=== PATIENT | male | born 1985 | race Caucasian/White ===

== ENCOUNTER 2019-12-21 08:32 | Emergency (ER) | payer BC ==
[~2019-12-21] VITALS: Ht 188 cm; Wt 136.4 kg
[~2019-12-21 08:32] MED LIST: IBUP-2338 PO
[2019-12-21] MEDS ORDERED: SODIUM CHLORIDE 0.9% 1,000 ML IV ONE (10:02)
[2019-12-21 10:20] LABS: ANION GAP 15 mmol/L (8-16); CALCIUM, TOTAL 8.6 mg/dL (8.8-10.5); CARBON DIOXIDE 21 mmol/L (22-29); CHLORIDE 101 mmol/L (98-107); CREATININE 0.95 mg/dL (0.60-1.30); GLOMERULAR FILTR. RATE CALC > 60 mL/min (>60); GLUCOSE,RANDOM 124 mg/dL (70-110); POTASSIUM 3.5 mmol/L (3.5-5.1); SODIUM SERUM 137 mmol/L (136-145); UREA NITROGEN, BLOOD 11 mg/dL (7-18)
[2019-12-21 10:26] LABS: ALANINE AMINOTRANSFERASE 78 U/L (12-78); ALBUMIN 4.2 g/dL (3.4-5.0); ALKALINE PHOSPHATASE 85 U/L (46-116); ASPARTATE AMINOTRANSFERASE 35 U/L (15-37); BASOPHILS % (AUTO) 0.4 % (0.0-2.0); BILIRUBIN,TOTAL 1.3 mg/dL (0.1-1.0); EOSINOPHILS % (AUTO) 0.1 % (1.0-6.0); HEMATOCRIT 49.9 % (41-53); HEMOGLOBIN 17.6 g/dL (13.5-17.5); LIPASE 152 U/L (73-393); LYMPHOCYTES # (AUTO) 2.1 K/uL (1.0-4.8); LYMPHOCYTES % (AUTO) 35.4 % (22.0-44.0); MEAN CORPUSCULAR HEMOGLOBIN 30.4 pg (26.0-34.0); MEAN CORPUSCULAR HGB CONC 35.3 G/dL (31.0-37.0); MEAN CORPUSCULAR VOLUME 86 fL (80-100); MONOCYTES # (AUTO) 0.6 K/uL (0.1-1.0); MONOCYTES % (AUTO) 10.7 % (2.0-9.0); NEUTROPHILS # (AUTO) 3.1 K/uL (1.8-7.7); NEUTROPHILS % (AUTO) 53.4 % (40.0-70.0); PLATELET COUNT (AUTO) 176 K/uL (150-450); RED BLOOD CELL COUNT(AUTO) 5.79 MIL/uL (4.50-5.90); RED CELL DISTRIBUTION WIDTH 13.5 % (11.5-14.5); TOTAL PROTEIN, SERUM 8.8 g/dL (6.4-8.2)
[2019-12-21 11:27] LABS: GLUCOSE, URINE (UA) NEGATIVE (NEGATIVE); KETONES,URINE 15 mg/dL (NEGATIVE); LEUKOCYTE ESTERASE ,URINE NEGATIVE (NEGATIVE); NITRATE,URINE NEGATIVE (NEGATIVE); OCCULT BLOOD,URINE NEGATIVE (NEGATIVE); PROTEIN,URINE POS 1+ (NEGATIVE)
[2019-12-21 11:38] LABS: BILIRUBIN,URINE PRELIM. POSITIVE (NEGATIVE)
[2019-12-21 11:39] LABS: APPEARANCE,URINE HAZY (CLEAR)
[2019-12-21 12:03] LABS: BACTERIA,URINE None Seen /HPF (None Seen); RBC,URINE 0-2 /HPF (0-2); WBC,URINE 0-2 /HPF (0-5)
[2019-12-21 12:55] VITALS: BP 134/78
== END 2019-12-21 13:11 | disposition home or self-care (01) ==
LOC: EMS 08:33
DX: R19.7 Diarrhea, unspecified (principal); M54.5 Low back pain; F17.210 Nicotine dependence, cigarettes, uncomplicated; F12.90 Cannabis use, unspecified, uncomplicated
CPT/HCPCS: 36415; 80053; 81001; 83690; 85025; 96360; 99285; 99406; J7030

== ENCOUNTER 2019-12-22 13:37 | Emergency (ER) | payer BC ==
[~2019-12-22] VITALS: Ht 188 cm; Wt 136.4 kg
[2019-12-22] MEDS ORDERED: FAMOTIDINE 10 MG/ML 2 ML VIAL IVP ONE (15:00)
[2019-12-22] MEDS ORDERED: ONDANSETRON HCL 4 MG/2 ML VIAL IVP ONE (15:00)
[2019-12-22 15:47] LABS: BASOPHILS % (AUTO) 0.3 % (0.0-2.0); EOSINOPHILS % (AUTO) 0.7 % (1.0-6.0); HEMATOCRIT 49.5 % (41-53); HEMOGLOBIN 16.7 g/dL (13.5-17.5); LYMPHOCYTES # (AUTO) 2.1 K/uL (1.0-4.8); LYMPHOCYTES % (AUTO) 25.7 % (22.0-44.0); MEAN CORPUSCULAR HEMOGLOBIN 29.4 pg (26.0-34.0); MEAN CORPUSCULAR HGB CONC 33.7 G/dL (31.0-37.0); MEAN CORPUSCULAR VOLUME 87 fL (80-100); MONOCYTES # (AUTO) 0.8 K/uL (0.1-1.0); MONOCYTES % (AUTO) 10.2 % (2.0-9.0); NEUTROPHILS % (AUTO) 63.1 % (40.0-70.0); PLATELET COUNT (AUTO) 199 K/uL (150-450); RED BLOOD CELL COUNT(AUTO) 5.67 MIL/uL (4.50-5.90); RED CELL DISTRIBUTION WIDTH 13.3 % (11.5-14.5)
[2019-12-22 15:59] LABS: ANION GAP 16 mmol/L (8-16); CALCIUM, TOTAL 9.1 mg/dL (8.8-10.5); CARBON DIOXIDE 20 mmol/L (22-29); CHLORIDE 106 mmol/L (98-107); CREATININE 0.82 mg/dL (0.60-1.30); GLOMERULAR FILTR. RATE CALC > 60 mL/min (>60); GLUCOSE,RANDOM 94 mg/dL (70-110); POTASSIUM 3.4 mmol/L (3.5-5.1); SODIUM SERUM 142 mmol/L (136-145); UREA NITROGEN, BLOOD 12 mg/dL (7-18)
[2019-12-22 16:03] LABS: ALANINE AMINOTRANSFERASE 77 U/L (12-78); ALBUMIN 4.3 g/dL (3.4-5.0); ALKALINE PHOSPHATASE 79 U/L (46-116); ASPARTATE AMINOTRANSFERASE 33 U/L (15-37); BILIRUBIN,TOTAL 1.5 mg/dL (0.1-1.0); LIPASE 126 U/L (73-393); TOTAL PROTEIN, SERUM 8.6 g/dL (6.4-8.2)
[2019-12-22] MEDS ORDERED: POTASSIUM CHLORIDE 20 MEQ ER TABLET PO ONE (16:15)
[2019-12-22] MEDS ORDERED: SODIUM CHLORIDE 0.9% 500 ML IV ONE (16:15)
[2019-12-22 16:19] LABS: GLUCOMETER DEV NAME(LOC) PVLAB.13
[2019-12-22 17:29] LABS: APPEARANCE,URINE CLOUDY (CLEAR); GLUCOSE, URINE (UA) NEGATIVE (NEGATIVE); KETONES,URINE >=80 mg/dL (NEGATIVE); LEUKOCYTE ESTERASE ,URINE NEGATIVE (NEGATIVE); NITRATE,URINE NEGATIVE (NEGATIVE); OCCULT BLOOD,URINE NEGATIVE (NEGATIVE); PROTEIN,URINE POS 1+ (NEGATIVE)
[2019-12-22 17:46] LABS: BILIRUBIN,URINE PRELIM. POSITIVE (NEGATIVE)
[2019-12-22 18:10] LABS: BACTERIA,URINE Few /HPF (None Seen); MUCUS,URINE Moderate LPF (None Seen); RBC,URINE None Seen /HPF (0-2); SQUAMOUS EPITHELIAL CELL,UR Few /LPF (None Seen); WBC,URINE 0-2 /HPF (0-5)
[2019-12-22 18:49] VITALS: BP 138/84
== END 2019-12-22 18:50 | disposition home or self-care (01) ==
LOC: EMS 14:02
DX: U07.1 COVID-19 (principal); B34.9 Viral infection, unspecified; R11.2 Nausea with vomiting, unspecified; R19.7 Diarrhea, unspecified; R10.84 Generalized abdominal pain; F17.210 Nicotine dependence, cigarettes, uncomplicated
CPT/HCPCS: 36415; 74176; 80053; 81001; 83690; 85025; 87635; 96361; 96374; 96375; 99285; J2405; J3490; J7040

== ENCOUNTER 2020-10-30 12:52 | Emergency (ER) | payer BC ==
[~2020-10-30] VITALS: Ht 188 cm; Wt 136.4 kg
[2020-10-30 14:58] LABS: APPEARANCE,URINE CLEAR (CLEAR); BILIRUBIN,URINE NEGATIVE (NEGATIVE); GLUCOSE, URINE (UA) NEGATIVE (NEGATIVE); KETONES,URINE NEGATIVE (NEGATIVE); LEUKOCYTE ESTERASE ,URINE NEGATIVE (NEGATIVE); NITRATE,URINE NEGATIVE (NEGATIVE); OCCULT BLOOD,URINE NEGATIVE (NEGATIVE); PROTEIN,URINE NEGATIVE (NEGATIVE); UROBILINOGEN,URINE 0.2 mg/dL (<=1.0)
[2020-10-30] MEDS ORDERED: KETOROLAC TROMETHAMINE 10 MG TABLET PO ONE (15:30)
[2020-10-30 17:16] VITALS: BP 120/70
== END 2020-10-30 17:19 | disposition home or self-care (01) ==
LOC: EMS 12:54
DX: R30.0 Dysuria (principal); F17.210 Nicotine dependence, cigarettes, uncomplicated; F12.90 Cannabis use, unspecified, uncomplicated; Z87.442 Personal history of urinary calculi
CPT/HCPCS: 74176; 99284

== ENCOUNTER 2024-08-25 17:58 | Inpatient (IN) | payer BC ==
[~2024-08-25] VITALS: Ht 188 cm; Wt 118.2 kg
[2024-08-25] MEDS ORDERED: 0.9% SODIUM CHLORIDE 10 ML SYRINGE IVP ONE (18:27)
[2024-08-25] MEDS ORDERED: IOHEXOL 350 MG/ML 100 ML VIAL ONE (18:27)
[2024-08-25 18:45] LABS: BASOPHILS % (AUTO) 0.4 % (0.0-2.0); EOSINOPHILS % (AUTO) 5.2 % (1.0-6.0); HEMATOCRIT 45.7 % (41-53); HEMOGLOBIN 15.6 g/dL (13.5-17.5); LYMPHOCYTES # (AUTO) 2.2 K/uL (1.0-4.8); MEAN CORPUSCULAR HEMOGLOBIN 30.5 pg (26.0-34.0); MEAN CORPUSCULAR HGB CONC 34.2 G/dL (31.0-37.0); MEAN CORPUSCULAR VOLUME 89 fL (80-100); MONOCYTES # (AUTO) 0.6 K/uL (0.1-1.0); MONOCYTES % (AUTO) 11.1 % (2.0-9.0); NEUTROPHILS # (AUTO) 2.6 K/uL (1.8-7.7); NEUTROPHILS % (AUTO) 45.3 % (40.0-70.0); PLATELET COUNT (AUTO) 283 K/uL (150-450); RED BLOOD CELL COUNT(AUTO) 5.13 MIL/uL (4.50-5.90); RED CELL DISTRIBUTION WIDTH 13.3 % (11.5-14.5); WHITE BLOOD COUNT (AUTO) 5.7 K/uL (4.5-11.0)
[2024-08-25 18:59] LABS: ANION GAP 8 mmol/L (8-16); CALCIUM, TOTAL 8.9 mg/dL (8.8-10.5); CARBON DIOXIDE 27 mmol/L (22-29); CHLORIDE 102 mmol/L (98-107); GLOMERULAR FILTR. RATE CALC > 60 mL/min (>60); GLUCOSE,RANDOM 89 mg/dL (70-110); POTASSIUM 3.3 mmol/L (3.5-5.1); SODIUM SERUM 137 mmol/L (136-145); UREA NITROGEN, BLOOD 12 mg/dL (7-18)
[2024-08-25 19:05] LABS: ALANINE AMINOTRANSFERASE 49 U/L (12-78); ALBUMIN 3.6 g/dL (3.4-5.0); ALKALINE PHOSPHATASE 94 U/L (46-116); ASPARTATE AMINOTRANSFERASE 27 U/L (15-37); BILIRUBIN,TOTAL 1.2 mg/dL (0.1-1.0); PHOSPHORUS 3.1 mg/dL (2.5-4.9); TOTAL PROTEIN, SERUM 7.1 g/dL (6.4-8.2)
[2024-08-25 19:07] LABS: TROPONIN I-HIGH SENSITIVITY Less Than 4 ng/L (<76)
[2024-08-25] MEDS ORDERED: ACETAMINOPHEN 325 MG TABLET PO PRN (20:00)
[2024-08-25] MEDS ORDERED: ONDANSETRON HCL 4 MG/2 ML VIAL IVP PRN (20:00)
[2024-08-25] MEDS: OXYGEN THERAPY IH SCH (20:08)
[2024-08-25] MEDS: ASPIRIN 81 MG CHEWABLE TABLET PO ONE (20:13)
[2024-08-25] MEDS: ATORVASTATIN CALCIUM 40 MG TABLET PO SCH (20:13)
[2024-08-25] MEDS: DOCUSATE SODIUM 100 MG CAPSULE PO SCH (20:13)
[2024-08-25] MEDS ORDERED: POTASSIUM CHLORIDE 20 MEQ ER TABLET PO PRN (20:45)
[2024-08-25] MEDS ORDERED: POTASSIUM CHL 10 MEQ/WATER 50 ML IV PRN (20:45)
[2024-08-25] MEDS: CLOPIDOGREL BISULFATE 75 MG TABLET PO ONE (21:11)
[2024-08-26] MEDS: HEPARIN SODIUM,PORCINE 5,000 UNITS/ML VIAL SQ SCH (00:27)
[2024-08-26 01:21] LABS: TROPONIN I-HIGH SENSITIVITY Less Than 4 ng/L (<76)
[2024-08-26 06:52] LABS: BASOPHILS % (AUTO) 0.4 % (0.0-2.0); EOSINOPHILS % (AUTO) 1.8 % (1.0-6.0); HEMATOCRIT 45.6 % (41-53); HEMOGLOBIN 15.9 g/dL (13.5-17.5); LYMPHOCYTES # (AUTO) 1.5 K/uL (1.0-4.8); LYMPHOCYTES % (AUTO) 20.7 % (22.0-44.0); MEAN CORPUSCULAR HEMOGLOBIN 30.8 pg (26.0-34.0); MEAN CORPUSCULAR HGB CONC 34.9 G/dL (31.0-37.0); MEAN CORPUSCULAR VOLUME 88 fL (80-100); MONOCYTES # (AUTO) 0.5 K/uL (0.1-1.0); MONOCYTES % (AUTO) 7.7 % (2.0-9.0); NEUTROPHILS # (AUTO) 4.9 K/uL (1.8-7.7); NEUTROPHILS % (AUTO) 69.4 % (40.0-70.0); PLATELET COUNT (AUTO) 268 K/uL (150-450); RED BLOOD CELL COUNT(AUTO) 5.17 MIL/uL (4.50-5.90); RED CELL DISTRIBUTION WIDTH 13.6 % (11.5-14.5); WHITE BLOOD COUNT (AUTO) 7.1 K/uL (4.5-11.0)
[2024-08-26 07:21] LABS: ANION GAP 5 mmol/L (8-16); CALCIUM, TOTAL 8.9 mg/dL (8.8-10.5); CARBON DIOXIDE 30 mmol/L (22-29); CHLORIDE 101 mmol/L (98-107); CHOL/HDL RATIO 2.7 (4.2-7.3); CHOLESTEROL 131 mg/dL (131-200); CREATININE 0.83 mg/dL (0.60-1.30); GLOMERULAR FILTR. RATE CALC > 60 mL/min (>60); GLUCOSE,RANDOM 81 mg/dL (70-110); HDL CHOLESTEROL 48 mg/dL (40-60); LDL CHOL (CALC.) 74 mg/dL (0-130); POTASSIUM 4.3 mmol/L (3.5-5.1); SODIUM SERUM 136 mmol/L (136-145); TRIGLYCERIDES 46 mg/dL (15-150); UREA NITROGEN, BLOOD 9 mg/dL (7-18)
[2024-08-26 07:22] LABS: TROPONIN I-HIGH SENSITIVITY Less Than 4 ng/L (<76)
[2024-08-26 08:48] VITALS: BP 118/66; PULSE 63; RESP 19; TEMP 98.2; O2SAT 97
[2024-08-26 11:01] VITALS: BP 123/68; PULSE 66; RESP 20; TEMP 98.1; O2SAT 97
[2024-08-26] MEDS: CLOPIDOGREL BISULFATE 75 MG TABLET PO SCH (11:16)
[2024-08-26] MEDS: ASPIRIN 81 MG CHEWABLE TABLET PO SCH (11:17)
[2024-08-26 15:01] VITALS: BP 127/70; PULSE 68; RESP 19; TEMP 98.3; O2SAT 99
[2024-08-26 20:00] VITALS: BP 111/67; PULSE 87; RESP 18; TEMP 98; O2SAT 98
[2024-08-27] VITALS: BP 116/62; PULSE 77; RESP 18; TEMP 98; O2SAT 98
[2024-08-27 04:00] VITALS: BP 114/67; PULSE 74; RESP 18; TEMP 98; O2SAT 98
[2024-08-27 08:35] VITALS: BP 117/75; PULSE 84; RESP 18; TEMP 98.3; O2SAT 98
[2024-08-27 11:41] VITALS: BP 117/63; PULSE 90; RESP 18; TEMP 98.9; O2SAT 97
[2024-08-27] MEDS ORDERED: GADOTERATE MEGLUMINE 10 MMOL/20 ML VIAL IVP ONE (11:49)
[2024-08-27 15:58] VITALS: BP 118/66; PULSE 82; RESP 18; TEMP 98.9; O2SAT 96
[2024-08-27 19:54] VITALS: BP 116/69; PULSE 82; RESP 18; TEMP 98; O2SAT 97
[2024-08-28] VITALS: BP 111/68; PULSE 84; RESP 17; TEMP 98.7; O2SAT 97
[2024-08-28 04:00] VITALS: BP 103/70; PULSE 85; RESP 17; TEMP 98.1; O2SAT 98
[2024-08-28 07:23] VITALS: BP 116/72; PULSE 98; RESP 18; TEMP 98.4; O2SAT 99
[2024-08-28] MEDS ORDERED: ATOR40TA71 PO (07:23)
[2024-08-28] MEDS ORDERED: CLOP75TA60 PO (07:23)
[2024-08-28] MEDS ORDERED: ASPI-1450 PO (07:23)
[2024-08-28 09:14] LABS: BASOPHILS % (AUTO) 0.5 % (0.0-2.0); EOSINOPHILS % (AUTO) 0.6 % (1.0-6.0); HEMATOCRIT 49.5 % (41-53); HEMOGLOBIN 16.7 g/dL (13.5-17.5); LYMPHOCYTES # (AUTO) 1.8 K/uL (1.0-4.8); MEAN CORPUSCULAR HEMOGLOBIN 29.9 pg (26.0-34.0); MEAN CORPUSCULAR HGB CONC 33.8 G/dL (31.0-37.0); MEAN CORPUSCULAR VOLUME 89 fL (80-100); MONOCYTES # (AUTO) 0.6 K/uL (0.1-1.0); MONOCYTES % (AUTO) 7.9 % (2.0-9.0); NEUTROPHILS # (AUTO) 4.6 K/uL (1.8-7.7); PLATELET COUNT (AUTO) 280 K/uL (150-450); RED BLOOD CELL COUNT(AUTO) 5.59 MIL/uL (4.50-5.90); RED CELL DISTRIBUTION WIDTH 13.3 % (11.5-14.5); WHITE BLOOD COUNT (AUTO) 7.1 K/uL (4.5-11.0)
[2024-08-28 09:27] LABS: ANION GAP 11 mmol/L (8-16); CALCIUM, TOTAL 8.8 mg/dL (8.8-10.5); CARBON DIOXIDE 23 mmol/L (22-29); CHLORIDE 104 mmol/L (98-107); CREATININE 0.84 mg/dL (0.60-1.30); GLOMERULAR FILTR. RATE CALC > 60 mL/min (>60); GLUCOSE,RANDOM 90 mg/dL (70-110); POTASSIUM 3.8 mmol/L (3.5-5.1); SODIUM SERUM 138 mmol/L (136-145); UREA NITROGEN, BLOOD 14 mg/dL (7-18)
[2024-08-28 09:28] LABS: TROPONIN I-HIGH SENSITIVITY Less Than 4 ng/L (<76)
[2024-08-28 09:41] LABS: CHOL/HDL RATIO 2.3 (4.2-7.3); CHOLESTEROL 113 mg/dL (131-200); HDL CHOLESTEROL 50 mg/dL (40-60); LDL CHOL (CALC.) 50 mg/dL (0-130); TRIGLYCERIDES 66 mg/dL (15-150)
[2024-08-28] MEDS: ASPIRIN 325 MG TABLET PO ONE (09:46)
[2024-08-28 11:28] VITALS: BP 112/66; PULSE 78; RESP 19; TEMP 98.3; O2SAT 97
[2024-08-28 13:36] LABS: GLUCOMETER DEV NAME(LOC) ER.7; GLUCOSE,POINT OF CARE 74 MG/DL (70-110)
[2024-08-28 15:30] VITALS: BP 111/52; PULSE 82; RESP 18; TEMP 97.7; O2SAT 99
[2024-08-28 20:00] VITALS: BP 117/72; PULSE 78; RESP 17; TEMP 98.1; O2SAT 98
[2024-08-28 23:11] LABS: GLUCOMETER DEV NAME(LOC) 5N.2C; GLUCOSE,POINT OF CARE 101 MG/DL (70-110)
[2024-08-29] VITALS: BP 115/67; PULSE 81; RESP 17; TEMP 98.1; O2SAT 98
[2024-08-29 04:00] VITALS: BP 119/70; PULSE 77; RESP 17; TEMP 98.4; O2SAT 98
[2024-08-29 08:10] VITALS: BP 133/90; PULSE 97; RESP 19; TEMP 98.2; O2SAT 98
[2024-08-29 11:15] VITALS: BP 126/84; PULSE 88; RESP 19; TEMP 98.1; O2SAT 99
[2024-08-29 14:33] VITALS: BP 126/90; PULSE 98; RESP 18; TEMP 98.2; O2SAT 98
[2024-08-31 15:06] LABS: ANA,IFA (TITER & PATTERN) Negative
== END 2024-08-29 14:45 | disposition home or self-care (01) | DRG 948 ==
LOC: EMS 17:58 → EDH 19:49 → 5N 08-26 08:12
PROVIDERS: ADMIT Internal Medicine; ATTEND Internal Medicine
DX: R53.1 Weakness (principal); E66.9 Obesity, unspecified; E87.6 Hypokalemia; F17.210 Nicotine dependence, cigarettes, uncomplicated; Z87.442 Personal history of urinary calculi; Z68.33 Body mass index [BMI] 33.0-33.9, adult
CPT/HCPCS: 70496; 70498; 70551; 71045; 72141; 80048; 80053; 80061; 82948; 82962; 83735; 84100; 84484; 85025; 85651; 85730; 86038; 86140; 86850; 86900; 86901; 92610; 93005; 93306; 93880; 97116; 97162; 97165; 97535; 99285; G0378; G0480; J1644; 36415-L1; 36415-TC; 70450; 70450-TC